=== PATIENT | female | born 1940 | race Caucasian/White ===

== ENCOUNTER 2017-12-15 20:58 | Emergency (ER) | payer MEDICARE, BC ==
[2017-12-15] MEDS ORDERED: Lidocaine 1% w/Epinephrine 1:100K 20 ML VIAL ONE (21:47)
[2017-12-15] MEDS ORDERED: Ibuprofen 200 MG TAB ONE (21:47)
[2017-12-15] MEDS ORDERED: HYDROcodone/Acetaminophen 5/325 mg Tablet ONE (21:47)
--- NOTE | 2017-12-15 21:49 | RAD ---
RIGHT HAND THREE VIEWS: 12/15/17 HISTORY: Injury, right hand pain. FINDINGS/IMPRESSION: The bones are osteopenic. Degenerative changes are seen. A negative ulnar variance is present. No def inite acute fracture or dislocation is identified. POS: [facility]
--- NOTE | 2017-12-15 22:14 | RAD ---
AP PELVIS: 12/15/17 HISTORY: Fall, pelvic pain. FINDINGS/IMPRESSION: No acute fracture or dislocation is identified. POS: [facility]
--- NOTE | 2017-12-15 22:39 | CT ---
CT CERVICAL SPINE WITH CORONAL AND SAGITTAL REFORMATIONS 12/15/17 HISTORY: Fall, neck pain. FINDINGS/IMPRESSION: Degenerative changes are present in the cervical spine. No acute fracture or subluxation is identifie d. POS: [facility]
--- NOTE | 2017-12-15 23:00 | CT ---
CT BRAIN WITHOUT CONTRAST: 12/15/17 HISTORY: Fall, laceration to the head, headache. FINDINGS: Changes of chronic small vessel ischemic disease in the periventricular white matter. No evidence of acute infarct, hemorrhage, midline shift or abnormal extra-axial fluid collections are seen. The vent ricular size is appropriate and the basilar cisterns patent. The bony calvarium is intact. The visual ized paranasal sinuses and mastoid air cells are well aerated. Right periorbital and right frontal so ft tissue swelling is present. IMPRESSION: No CT evidence of acute intracranial process. POS: [facility]
[2017-12-15 23:04] LABS: Bilirubin Negative (Negative); Blood, Urine Negative (Negative); Clarity CLEAR (Clear); Glucose, Urine (Dipstick) Negative (Negative); Leukocyte Small (Negative); Nitrite Negative (Negative); Protein, Urine (Dipstick) Negative (Neg-Trace); Specific Gravity, Urine 1.006 (1.002-1.036); Urobilinogen 0.2 mg/dL (0.2-1.0)
[2017-12-15 23:05] LABS: Bacteria/HPF None Seen HPF (None Seen); Hyaline Casts/LPF 0-3 HYALINE CAST LPF (0-3 Hyaline); Pathc Cast-AUWi Flag 0.14 (0-2.49); RBC/HPF 0-3 HPF (0-3); Squamous Epithelial None Seen HPF (0-3); WBC/HPF 0-3 HPF (0-3)
--- NOTE | 2017-12-15 23:14 | CT ---
CT FACIAL BONES WITH CORONAL AND SAGITTAL REFORMATIONS: 12/15/17 HISTORY: Fall, facial pain. FINDINGS: There is soft tissue swelling in the right periorbital region. No facial bone fracture is seen. No te mporomandibular dislocation is identified. The visualized paranasal sinuses are well aerated without air fluid levels. No retrobulbar hematoma or proptosis are seen. IMPRESSION: No CT evidence of facial bone fracture. POS: [facility]
== END 2017-12-16 01:08 | disposition home or self-care (01) ==
LOC: ERS 20:58
DX: S06.0X0A Concussion without loss of consciousness, initial encounter (principal); S01.111A Laceration without foreign body of right eyelid and periocular area, initial encounter; E78.00 Pure hypercholesterolemia, unspecified; Z79.899 Other long term (current) drug therapy; W01.0XXA Fall on same level from slipping, tripping and stumbling without subsequent striking against object, initial encounter
CPT/HCPCS: 70450; 70486; 72125; 72170; 81003; 81015; J2001

== ENCOUNTER 2017-12-21 10:27 | Emergency (ER) | payer MEDICARE, BC | END 2017-12-21 11:49 | disposition home or self-care (01) | LOC: ERS 10:27 | DX: S01.111D Laceration without foreign body of right eyelid and periocular area, subsequent encounter (principal) ==

== ENCOUNTER 2018-01-04 10:58 | Outpatient (CLI) | payer MEDICARE, BC | END 2018-01-04 10:59 | disposition home or self-care (01) | LOC: BICCT 10:58 | PROVIDERS: ATTEND Internal Medicine | DX: R51 Headache (principal); Z91.81 History of falling | CPT/HCPCS: 70450 ==

== ENCOUNTER 2018-02-26 13:17 | Outpatient (CLI) | payer MEDICARE, BC | END 2018-02-26 13:18 | disposition home or self-care (01) | LOC: BICMAMMO 13:17 | PROVIDERS: ATTEND Internal Medicine | DX: Z12.31 Encounter for screening mammogram for malignant neoplasm of breast (principal); Z13.820 Encounter for screening for osteoporosis; M85.852 Other specified disorders of bone density and structure, left thigh; Z85.3 Personal history of malignant neoplasm of breast | CPT/HCPCS: 77063; 77067; 77080 ==

== ENCOUNTER 2018-09-04 09:26 | Outpatient (CLI) | payer MEDICARE, BC ==
[2018-09-04] MEDS ORDERED: Iopamidol 370 76% 100 ML VIAL ONE (09:28)
--- NOTE | 2018-09-04 10:44 | CT ---
CT ABDOMEN AND PELVIS WITH CONTRAST: Multiple axial tomograms were obtained through the abdomen and pelvis with IV enhancement. Oral cont rast was given. INDICATION: Abdominal pain. Diarrhea. COMPARISON: No comparison studies available. FINDINGS: Lung bases appear clear. Liver, spleen, and pancreas are unremarkable. Stomach and duodenum are unremarkable. Adrenal glands are normal. Kidneys unremarkable. Small bowel loops appear normal. Colon unremarkable. Aorta normal caliber with atherosclerotic almaguer ges present. No mass or adenopathy. IMPRESSION: No evidence of acute process. POS: [facility]
== END 2018-09-04 09:27 | disposition home or self-care (01) ==
LOC: BICCT 09:26
PROVIDERS: ATTEND Physician Assistant Medical
DX: R10.84 Generalized abdominal pain (principal); R12 Heartburn; R11.2 Nausea with vomiting, unspecified; R19.4 Change in bowel habit
CPT/HCPCS: 74177; 82565; Q9967

== ENCOUNTER 2019-03-27 11:27 | Outpatient (CLI) | payer MEDICARE, BC ==
--- NOTE | 2019-03-28 08:49 | MMO ---
Bilateral MAMMO Bilat Screen [facility]. CLINICAL HISTORY: Patient is 78 years old and is seen for screening. The patient has no family history of breast cancer. The patient has a history of ovarian cancer at age 51. The patient has a history of left Stereotatic Biopsy in April, - dcis and left Lumpectomy in April, - dcis. VIEWS: The views performed were: bilateral craniocaudal with tomosynthesis and bilateral mediolateral oblique with tomosynthesis. FILMS COMPARED: The present examination has been compared to prior imaging studies performed at [facility] on 12/14/2014, 12/21/2015, 12/27/2016 and 02/26/2018. This study has been interpreted with the assistance of computer-aided detection. MAMMOGRAM FINDINGS: The breasts are almost entirely fat. Benign calcifications are noted bilaterally. There are no suspicious masses, suspicious calcifications, or new areas of architectural distortion. IMPRESSION: THERE IS NO MAMMOGRAPHIC EVIDENCE OF MALIGNANCY. A ROUTINE FOLLOW-UP MAMMOGRAM IN 1 YEAR IS RECOMMENDED. THE RESULTS OF THIS EXAM WERE SENT TO THE PATIENT. ACR BI-RADS Category 2 - Benign finding MAMMOGRAPHY NOTE: 1. A negative mammogram report should not delay a biopsy if a dominant of clinically suspicious mass is present. 2. Approximately 10% to 15% of breast cancers are not detected by mammography. 3. Adenosis and dense breasts may obscure an underlying neoplasm. Reported by: Steven BRAND Electonically Signed: [id number]
== END 2019-03-27 11:28 | disposition home or self-care (01) ==
LOC: BICMAMMO 11:27
PROVIDERS: ATTEND Internal Medicine
DX: Z12.31 Encounter for screening mammogram for malignant neoplasm of breast (principal); Z85.3 Personal history of malignant neoplasm of breast
CPT/HCPCS: 77063; 77067

== ENCOUNTER 2022-01-11 11:18 | Outpatient (CLI) | payer MEDICARE, BC | END 2022-01-11 11:19 | disposition home or self-care (01) | LOC: BICMAMMO 11:18 | PROVIDERS: ATTEND Internal Medicine | DX: Z12.31 Encounter for screening mammogram for malignant neoplasm of breast (principal); Z85.43 Personal history of malignant neoplasm of ovary; Z98.890 Other specified postprocedural states | CPT/HCPCS: 77063; 77067 ==